=== PATIENT | male | born 1970 | race Caucasian/White ===

== ENCOUNTER 2016-07-03 13:18 | Emergency (ER) | payer MEDICARE, OTHER | END 2016-07-03 14:07 | disposition home or self-care (01) | LOC: ER1 13:18 | DX: T15.91XA Foreign body on external eye, part unspecified, right eye, initial encounter (principal); F17.210 Nicotine dependence, cigarettes, uncomplicated; Z23 Encounter for immunization | CPT/HCPCS: 65220; 90471; 90715; 99283 ==

== ENCOUNTER 2021-11-08 00:09 | Emergency (ER) | payer MEDICARE, OTHER ==
[~2021-11-08 00:09] MED LIST: ERYTHROMYCIN O3.5 GM OS
[2021-11-08 01:07] LABS: HEMOGLOBIN 15.9 gm/dl (14.0-17.5); RED BLOOD COUNT 5.02 M/UL (4.20-5.50)
[2021-11-08 01:46] LABS: BUN/CREATININE RATIO 12 (0-10)
== END 2021-11-08 04:40 | disposition home or self-care (01) ==
LOC: ER1 00:09
PROVIDERS: Family Medicine
DX: R07.9 Chest pain, unspecified (principal); I51.9 Heart disease, unspecified; Z95.0 Presence of cardiac pacemaker; Z88.5 Allergy status to narcotic agent
CPT/HCPCS: 71045; 80053; 82550; 82553; 84484; 85025; 85379; 85610; 85730; 93005; 99285